=== PATIENT | male | born 1940 | race Caucasian/White ===

== ENCOUNTER → 2017-06-07 | Outpatient (CLI) | payer MEDICARE, OTHER ==
[~2017-06-07] VITALS: Ht 172.7 cm; Wt 78.0 kg
[~2017-06-07] MED LIST: ASPI-231 PO; ATOR20TA PO; LISI-646 PO; RANI-229 PO
== END | disposition home or self-care (01) ==
LOC: Rad HDHVI 13:43
PROVIDERS: ATTEND Internal Medicine Cardiovascular Disease
DX: I10 Essential (primary) hypertension (principal); E78.00 Pure hypercholesterolemia, unspecified; E11.9 Type 2 diabetes mellitus without complications; Z95.0 Presence of cardiac pacemaker
CPT/HCPCS: 78452; 93017; 96374; A9500

== ENCOUNTER → 2018-06-08 | Outpatient (CLI) | payer MEDICARE, BC ==
[2018-06-08 12:05] LABS: Basophils # (auto) 0.1 uL; Basophils % (auto) 0.7 % (0.0-2.0); Eosinophils # (auto) 0.2 uL; Eosinophils % (auto) 2.5 % (0.0-7.0); Hematocrit 49.1 % (41.0-53.0); Hemoglobin 16.3 g/dL (13.5-17.5); Lymphocytes # (auto) 2.1 uL; Lymphocytes % (auto) 27.6 % (10.0-50.0); Mean Corpuscular Hemoglobin 30.9 pg (28.0-32.0); Mean Corpuscular Hgb Conc. 33.1 g/dL (32.0-36.0); Mean Corpuscular Volume 93.4 fL (80.0-100.0); Monocytes # (auto) 0.8 uL; Monocytes % (auto) 9.9 % (0.0-12.0); Neutrophils # (auto) 4.6 uL; Neutrophils % (auto) 59.3 % (37.0-80.0); Nucleated Red Blood Cells % 0.6 %; Platelet Count (auto) 185 10^3/uL (140-450); Red Blood Cells 5.26 10^6/uL (4.5-5.90); Red Cell Distribution Width 13.9 % (11.8-14.3); White Blood Cell 7.7 10^3/uL (4.4-10.8)
[2018-06-08 12:15] LABS: Urine Blood Negative /uL (Negative); Urine Specific Gravity 1.012 (1.001-1.035)
[2018-06-08 12:53] LABS: Free T4 (Free Thyroxine) 1.06 ng/dL (0.89-1.76)
[2018-06-08 12:56] LABS: Prostate Specific Antigen 4.59 ng/mL (0.0-4.0)
[2018-06-08 13:36] LABS: Albumin 3.8 g/dL (3.4-5.0); BUN/Creatinine Ratio 16.5; Bilirubin, Total 3.5 mg/dL (0.2-1.0); Calcium 9.1 mg/dL (8.5-10.1); Potassium 3.8 mmol/L (3.5-5.1); Total Protein 7.2 g/dL (6.4-8.2)
== END | disposition home or self-care (01) ==
LOC: LAB 07:58
PROVIDERS: ATTEND Internal Medicine Cardiovascular Disease
DX: Z00.01 Encounter for general adult medical examination with abnormal findings (principal); E03.9 Hypothyroidism, unspecified; E55.9 Vitamin D deficiency, unspecified; E11.9 Type 2 diabetes mellitus without complications; E29.1 Testicular hypofunction; C61 Malignant neoplasm of prostate; D51.9 Vitamin B12 deficiency anemia, unspecified; N39.0 Urinary tract infection, site not specified; I10 Essential (primary) hypertension; E78.00 Pure hypercholesterolemia, unspecified
CPT/HCPCS: 36415; 80053; 80061; 81003; 82306; 82607; 83036; 84153; 84154; 84403; 84439; 84443; 85025

== ENCOUNTER → 2018-07-06 | Outpatient (CLI) | payer MEDICARE, BC ==
[~2018-07-06] VITALS: Ht 172.7 cm; Wt 77.1 kg
== END | disposition home or self-care (01) ==
LOC: Rad HDHVI 08:30
PROVIDERS: ATTEND Internal Medicine Cardiovascular Disease
DX: I11.0 Hypertensive heart disease with heart failure (principal); E03.9 Hypothyroidism, unspecified; E11.9 Type 2 diabetes mellitus without complications; I35.0 Nonrheumatic aortic (valve) stenosis
CPT/HCPCS: 78452; 93017; 93306; 96374; A9500

== ENCOUNTER → 2018-11-14 | Outpatient (CLI) | payer MEDICARE, BC | END | disposition home or self-care (01) | LOC: Rad HDHVI 10:56 | PROVIDERS: ATTEND Internal Medicine Cardiovascular Disease | DX: I35.1 Nonrheumatic aortic (valve) insufficiency (principal); I49.9 Cardiac arrhythmia, unspecified; R00.2 Palpitations; I50.23 Acute on chronic systolic (congestive) heart failure | CPT/HCPCS: 93306 ==

== ENCOUNTER → 2018-12-29 | Outpatient (CLI) | payer MEDICARE, BC ==
[2018-12-29 12:22] LABS: Basophils # (auto) 0.1 uL; Basophils % (auto) 0.7 % (0.0-2.0); Eosinophils # (auto) 0.1 uL; Eosinophils % (auto) 1.8 % (0.0-7.0); Hematocrit 48.7 % (41.0-53.0); Hemoglobin 16.4 g/dL (13.5-17.5); Lymphocytes % (auto) 26.6 % (10.0-50.0); Mean Corpuscular Hemoglobin 31.3 pg (28.0-32.0); Mean Corpuscular Hgb Conc. 33.6 g/dL (32.0-36.0); Monocytes # (auto) 0.8 uL; Monocytes % (auto) 10.2 % (0.0-12.0); Neutrophils # (auto) 4.5 uL; Neutrophils % (auto) 60.7 % (37.0-80.0); Nucleated Red Blood Cells % 0.2 %; Platelet Count (auto) 178 10^3/uL (140-450); Red Blood Cells 5.23 10^6/uL (4.5-5.90); Red Cell Distribution Width 13.6 % (11.8-14.3); White Blood Cell 7.4 10^3/uL (4.4-10.8)
[2018-12-29 12:29] LABS: BUN/Creatinine Ratio 18.3; Calcium 9.2 mg/dL (8.5-10.1)
== END | disposition home or self-care (01) ==
LOC: Rad HDHVI 09:58
PROVIDERS: ATTEND Internal Medicine Cardiovascular Disease
DX: I35.1 Nonrheumatic aortic (valve) insufficiency (principal); D64.9 Anemia, unspecified; I10 Essential (primary) hypertension; I49.5 Sick sinus syndrome; R06.01 Orthopnea
CPT/HCPCS: 36415; 80048; 85025; 93306

== ENCOUNTER → 2019-07-24 | Outpatient (CLI) | payer MEDICARE, BC ==
[2019-07-24 12:28] LABS: Basophils # (auto) 0.1 uL; Basophils % (auto) 0.7 % (0.0-2.0); Eosinophils # (auto) 0.2 uL; Eosinophils % (auto) 2.3 % (0.0-7.0); Hematocrit 48.3 % (41.0-53.0); Hemoglobin 16.4 g/dL (13.5-17.5); Lymphocytes % (auto) 28.6 % (10.0-50.0); Mean Corpuscular Hemoglobin 31.6 pg (28.0-32.0); Mean Corpuscular Hgb Conc. 33.9 g/dL (32.0-36.0); Mean Corpuscular Volume 93.3 fL (80.0-100.0); Monocytes # (auto) 0.7 uL; Monocytes % (auto) 9.9 % (0.0-12.0); Neutrophils # (auto) 4.2 uL; Neutrophils % (auto) 58.5 % (37.0-80.0); Nucleated Red Blood Cells % 0.1 %; Platelet Count (auto) 174 10^3/uL (140-450); Red Blood Cells 5.18 10^6/uL (4.5-5.90); White Blood Cell 7.2 10^3/uL (4.4-10.8)
[2019-07-24 12:31] LABS: Potassium 3.5 mmol/L (3.5-5.1); Urine Blood Negative /uL (Negative); Urine Specific Gravity 1.014 (1.001-1.035)
[2019-07-24 12:38] LABS: Free T4 (Free Thyroxine) 1.36 ng/dL (0.89-1.76)
[2019-07-24 12:39] LABS: Albumin 3.6 g/dL (3.4-5.0); BUN/Creatinine Ratio 12.4; Bilirubin, Total 2.2 mg/dL (0.2-1.0); Calcium 9.4 mg/dL (8.5-10.1); Total Protein 6.9 g/dL (6.4-8.2)
[2019-07-24 12:55] LABS: Prostate Specific Antigen 6.08 ng/mL (0.0-4.0)
== END | disposition home or self-care (01) ==
LOC: LAB 08:04
PROVIDERS: ATTEND Internal Medicine Cardiovascular Disease
DX: E03.9 Hypothyroidism, unspecified (principal); K90.9 Intestinal malabsorption, unspecified; C61 Malignant neoplasm of prostate; E29.1 Testicular hypofunction; N39.0 Urinary tract infection, site not specified; D51.9 Vitamin B12 deficiency anemia, unspecified; E11.9 Type 2 diabetes mellitus without complications; I11.0 Hypertensive heart disease with heart failure; I50.9 Heart failure, unspecified; Z79.899 Other long term (current) drug therapy
CPT/HCPCS: 36415; 80053; 80061; 81003; 82306; 82607; 83036; 84153; 84154; 84403; 84439; 84443; 85025

== ENCOUNTER → 2020-07-29 | Outpatient (CLI) | payer MEDICARE, BC ==
[~2020-07-29] MED LIST changes: -RANI-229 PO; +RANI300T PO
== END | disposition home or self-care (01) ==
LOC: Rad HDHVI 14:05
PROVIDERS: ATTEND Internal Medicine Cardiovascular Disease
DX: R00.2 Palpitations (principal); R06.02 Shortness of breath; Z95.0 Presence of cardiac pacemaker
CPT/HCPCS: 93306

== ENCOUNTER → 2020-11-03 | Outpatient (CLI) | payer MEDICARE, BC | END | disposition home or self-care (01) | LOC: Rad HDHVI 09:34 | PROVIDERS: ATTEND Internal Medicine Cardiovascular Disease | DX: M79.632 Pain in left forearm (principal) | CPT/HCPCS: 73090 ==

== ENCOUNTER → 2021-05-08 | Outpatient (CLI) | payer MEDICARE, BC ==
[~2021-05-08] MED LIST changes: -LISI-646 PO; +LISI20TA28 PO
== END | disposition home or self-care (01) ==
LOC: Rad HDHVI 12:56
PROVIDERS: ATTEND Internal Medicine Cardiovascular Disease
DX: R00.2 Palpitations (principal); R06.02 Shortness of breath
CPT/HCPCS: 93306

== ENCOUNTER → 2021-05-14 | Outpatient (CLI) | payer MEDICARE, BC ==
[2021-05-14 12:01] LABS: Basophils # (auto) 0.1 10 ^3/uL (0-0.2); Basophils % (auto) 0.6 % (0.0-2.0); Eosinophils # (auto) 0.2 10 ^3/uL (0-0.8); Eosinophils % (auto) 2.4 % (0.0-7.0); Hemoglobin 16.3 g/dL (13.5-17.5); Lymphocytes # (auto) 2.1 10 ^3/uL (0.4-5.4); Lymphocytes % (auto) 23.4 % (10.0-50.0); Mean Corpuscular Hemoglobin 32.3 pg (28.0-32.0); Mean Corpuscular Hgb Conc. 34.6 g/dL (32.0-36.0); Mean Corpuscular Volume 93.3 fL (80.0-100.0); Monocytes # (auto) 0.8 10 ^3/uL (0-1.3); Monocytes % (auto) 9.1 % (0.0-12.0); Neutrophils # (auto) 5.7 10 ^3/uL (1.6-8.6); Neutrophils % (auto) 64.5 % (37.0-80.0); Nucleated Red Blood Cells % 0.5 %; Platelet Count (auto) 200 10^3/uL (140-450); Red Blood Cells 5.04 10^6/uL (4.5-5.90); Red Cell Distribution Width 13.5 % (11.8-14.3); White Blood Cell 8.8 10^3/uL (4.4-10.8)
[2021-05-14 12:04] LABS: Urine Blood Negative /uL (Negative); Urine Specific Gravity 1.015 (1.001-1.035)
[2021-05-14 12:05] LABS: Potassium 3.8 mmol/L (3.5-5.1)
[2021-05-14 12:16] LABS: Free T4 (Free Thyroxine) 1.41 ng/dL (0.89-1.76)
[2021-05-14 12:17] LABS: Albumin 3.8 g/dL (3.4-5.0); BUN/Creatinine Ratio 13.5; Bilirubin, Total 3.2 mg/dL (0.2-1.0); Calcium 9.5 mg/dL (8.5-10.1); Total Protein 7.2 g/dL (6.4-8.2)
[2021-05-14 12:19] LABS: Prostate Specific Antigen 5.56 ng/mL (0.0-4.0)
== END | disposition home or self-care (01) ==
LOC: CHF HDHVI 08:22
PROVIDERS: ATTEND Internal Medicine Cardiovascular Disease
DX: C61 Malignant neoplasm of prostate (principal); D51.3 Other dietary vitamin B12 deficiency anemia; I10 Essential (primary) hypertension; E11.9 Type 2 diabetes mellitus without complications; E55.9 Vitamin D deficiency, unspecified; D64.9 Anemia, unspecified; R00.2 Palpitations; R53.1 Weakness; R30.0 Dysuria
CPT/HCPCS: 36415; 80053; 80061; 81003; 82306; 82607; 83036; 84153; 84154; 84403; 84439; 84443; 85025; 85049

== ENCOUNTER → 2021-05-26 | Outpatient (CLI) | payer MEDICARE, BC ==
[~2021-05-26] VITALS: Ht 172.7 cm; Wt 79.4 kg
== END | disposition home or self-care (01) ==
LOC: Rad HDHVI 09:17
PROVIDERS: ATTEND Internal Medicine Cardiovascular Disease
DX: I25.10 Atherosclerotic heart disease of native coronary artery without angina pectoris (principal); I10 Essential (primary) hypertension; E11.9 Type 2 diabetes mellitus without complications; E78.5 Hyperlipidemia, unspecified; Z95.0 Presence of cardiac pacemaker
CPT/HCPCS: 78452; 93017; 96374; A9500

== ENCOUNTER → 2021-08-10 | Outpatient (CLI) | payer MEDICARE, BC | END | disposition home or self-care (01) | LOC: LAB 10:55 | PROVIDERS: ATTEND Internal Medicine Cardiovascular Disease | DX: R94.4 Abnormal results of kidney function studies (principal) | CPT/HCPCS: 36415; 82565; 84520 ==

== ENCOUNTER → 2021-08-11 | Outpatient (CLI) | payer MEDICARE, BC ==
[~2021-08-11] MED LIST changes: -ASPI-231 PO; +ASPI1TAB20 PO; +IOHEXOL 350 MG/ML 100ML IJ ONE
[2021-08-11 09:23] VITALS: BP 134/88
[2021-08-11 09:57] VITALS: BP 138/67
== END | disposition home or self-care (01) ==
LOC: Rad HDHVI 09:16
PROVIDERS: ATTEND Internal Medicine Cardiovascular Disease
DX: I65.23 Occlusion and stenosis of bilateral carotid arteries (principal); I70.0 Atherosclerosis of aorta; I65.01 Occlusion and stenosis of right vertebral artery
CPT/HCPCS: 70496; G0463; Q9967

== ENCOUNTER → 2021-11-23 | Outpatient (CLI) | payer MEDICARE, BC ==
[~2021-11-23] MED LIST changes: -IOHEXOL 350 MG/ML 100ML IJ ONE
[2021-11-23 11:31] LABS: Basophils # (auto) 0.1 10 ^3/uL (0-0.2); Basophils % (auto) 0.9 % (0.0-2.0); Eosinophils # (auto) 0.4 10 ^3/uL (0-0.8); Eosinophils % (auto) 4.3 % (0.0-7.0); Hematocrit 47.8 % (41.0-53.0); Hemoglobin 16.2 g/dL (13.5-17.5); Lymphocytes # (auto) 2.2 10 ^3/uL (0.4-5.4); Lymphocytes % (auto) 25.7 % (10.0-50.0); Mean Corpuscular Hgb Conc. 33.9 g/dL (32.0-36.0); Mean Corpuscular Volume 91.3 fL (80.0-100.0); Monocytes # (auto) 0.8 10 ^3/uL (0-1.3); Monocytes % (auto) 9.5 % (0.0-12.0); Neutrophils # (auto) 5.2 10 ^3/uL (1.6-8.6); Neutrophils % (auto) 59.6 % (37.0-80.0); Nucleated Red Blood Cells % 0.1 %; Red Blood Cells 5.23 10^6/uL (4.5-5.90); Red Cell Distribution Width 13.7 % (11.8-14.3); Urine Blood Negative /uL (Negative); Urine Specific Gravity 1.014 (1.001-1.035); White Blood Cell 8.7 10^3/uL (4.4-10.8)
[2021-11-23 12:09] LABS: Potassium 4.2 mmol/L (3.5-5.1)
[2021-11-23 12:10] LABS: Free T4 (Free Thyroxine) 1.21 ng/dL (0.89-1.76)
[2021-11-23 12:19] LABS: Albumin 3.5 g/dL (3.4-5.0); BUN/Creatinine Ratio 16.3; Bilirubin, Total 1.6 mg/dL (0.2-1.0); Calcium 9.4 mg/dL (8.5-10.1); Total Protein 7.2 g/dL (6.4-8.2)
[2021-11-23 12:32] LABS: Prostate Specific Antigen 6.99 ng/mL (0.0-4.0)
== END | disposition home or self-care (01) ==
LOC: LAB 10:31
PROVIDERS: ATTEND Internal Medicine Cardiovascular Disease
DX: C61 Malignant neoplasm of prostate (principal); E11.9 Type 2 diabetes mellitus without complications; D51.3 Other dietary vitamin B12 deficiency anemia; D64.9 Anemia, unspecified; E55.9 Vitamin D deficiency, unspecified; I10 Essential (primary) hypertension; R00.2 Palpitations; R53.1 Weakness; R30.0 Dysuria
CPT/HCPCS: 36415; 80053; 80061; 81003; 82306; 82607; 83036; 84153; 84154; 84403; 84439; 84443; 85025

== ENCOUNTER → 2021-11-25 | Outpatient (CLI) | payer MEDICARE, BC | END | disposition home or self-care (01) | LOC: Rad HDHVI 12:54 | PROVIDERS: ATTEND Internal Medicine Cardiovascular Disease | DX: I08.8 Other rheumatic multiple valve diseases (principal); E78.5 Hyperlipidemia, unspecified; R06.02 Shortness of breath; Z95.0 Presence of cardiac pacemaker | CPT/HCPCS: 93306 ==

== ENCOUNTER → 2022-05-03 | Outpatient (CLI) | payer MEDICARE, BC | END | disposition home or self-care (01) | LOC: Rad HDHVI 08:54 | PROVIDERS: ATTEND Internal Medicine Cardiovascular Disease | DX: I63.9 Cerebral infarction, unspecified (principal) | CPT/HCPCS: 70450 ==

== ENCOUNTER → 2022-12-06 | Outpatient (CLI) | payer MEDICARE, BC | END | disposition home or self-care (01) | LOC: Rad HDHVI 09:15 | PROVIDERS: ATTEND Internal Medicine Cardiovascular Disease | DX: I11.9 Hypertensive heart disease without heart failure (principal); R06.02 Shortness of breath; E78.5 Hyperlipidemia, unspecified | CPT/HCPCS: 93306 ==

== ENCOUNTER → 2022-12-21 | Outpatient (CLI) | payer MEDICARE, BC | END | disposition home or self-care (01) | LOC: Rad HDHVI 15:27 | PROVIDERS: ATTEND Internal Medicine Cardiovascular Disease | DX: M79.672 Pain in left foot (principal); M79.671 Pain in right foot | CPT/HCPCS: 73630 ==

== ENCOUNTER → 2023-10-13 | Outpatient (CLI) | payer MEDICARE, BC ==
[~2023-10-13] MED LIST changes: -LISI20TA28 PO; +LISI20TA56 PO
== END | disposition home or self-care (01) ==
LOC: Rad HDHVI 10:47
PROVIDERS: ATTEND Internal Medicine Cardiovascular Disease
DX: I34.0 Nonrheumatic mitral (valve) insufficiency (principal); I11.9 Hypertensive heart disease without heart failure; I71.21 Aneurysm of the ascending aorta, without rupture; E78.5 Hyperlipidemia, unspecified
CPT/HCPCS: 93306

== ENCOUNTER → 2023-10-21 | Outpatient (CLI) | payer MEDICARE, BC ==
[~2023-10-21] VITALS: Ht 172.7 cm; Wt 73.9 kg
== END | disposition home or self-care (01) ==
LOC: Rad HDHVI 09:42
PROVIDERS: ATTEND Internal Medicine Cardiovascular Disease
DX: I11.0 Hypertensive heart disease with heart failure (principal); I50.43 Acute on chronic combined systolic (congestive) and diastolic (congestive) heart failure; I35.8 Other nonrheumatic aortic valve disorders; E11.40 Type 2 diabetes mellitus with diabetic neuropathy, unspecified; E78.00 Pure hypercholesterolemia, unspecified; Z95.0 Presence of cardiac pacemaker
CPT/HCPCS: 78452; 93017; 96374; A9500

== ENCOUNTER → 2024-08-07 | Outpatient (CLI) | payer MEDICARE, BC | END | disposition home or self-care (01) | LOC: Rad HDHVI 09:52 | PROVIDERS: ATTEND Internal Medicine Cardiovascular Disease | DX: I08.1 Rheumatic disorders of both mitral and tricuspid valves (principal); I11.9 Hypertensive heart disease without heart failure; R00.2 Palpitations; Z95.2 Presence of prosthetic heart valve | CPT/HCPCS: 93306 ==

== ENCOUNTER → 2024-10-02 | Outpatient (CLI) | payer MEDICARE, BC ==
--- NOTE | 2024-10-02 12:39 | DVH ---
EXAM: CT HEAD WITHOUT CONTRAST INDICATION: HEADACHES TECHNIQUE: CT of the head without intravenous contrast. Radiation Dose Information: CT Dose: CTDI volume is 50.94 mGy. Dose-length product is 815.1 mGy*cm The dose indicators for CT are the volume Computed Tomography (CT) Dose Index (CTDIvol) and the Dose Length Product (DLP), and are measured in units of mGy and mGy-cm, respectively. These indicators are not patient dose, but values generated from the CT scanner acquisition factors. The report includes radiation exposure data for exposures received during this examination. COMPARISON: HEAD WITHOUT CONTRAST on DOS: 05/03/22 FINDINGS: There is no evidence of acute intracranial hemorrhage, extra-axial collection, mass effect, midline s hift, herniation or hydrocephalus. The ventricles, sulci and cisterns are age appropriate. The abernathy-white differentiation is intact. Patchy periventricular and subcortical white matter hypoattenuation is nonspecific but may be related to small vessel ischemic disease. The visualized paranasal sinuses and mastoid air cells are clear. The surrounding soft tissues and osseous structures are unremarkable. IMPRESSION: 1. No CT evidence of acute intracranial abnormality. HS:Y
== END | disposition home or self-care (01) ==
LOC: Rad HDHVI 10:59
PROVIDERS: ATTEND Internal Medicine Cardiovascular Disease
DX: G93.89 Other specified disorders of brain (principal); R51.9 Headache, unspecified
CPT/HCPCS: 70450

== ENCOUNTER → 2024-10-10 | Outpatient (CLI) | payer MEDICARE, BC ==
[~2024-10-10] MED LIST changes: +ALBUTEROL SULF 2.5 MG/0.5ML(0.5%) NEB SOLN ONE
== END | disposition home or self-care (01) ==
LOC: Rad HDHVI 10:52
PROVIDERS: ATTEND Internal Medicine Cardiovascular Disease
DX: I50.43 Acute on chronic combined systolic (congestive) and diastolic (congestive) heart failure (principal)
CPT/HCPCS: 93880

== ENCOUNTER → 2024-10-12 | Outpatient (CLI) | payer MEDICARE, BC ==
[~2024-10-12] MED LIST changes: -ALBUTEROL SULF 2.5 MG/0.5ML(0.5%) NEB SOLN ONE
--- NOTE | 2024-10-16 13:37 | DVHSR ---
APPROVED REPORT EXAM: Two-dimensional and M-mode echocardiogram with Doppler and color Doppler. Surgery/Intervention Valve Replacement: Type: TAVR Pacemaker: DIMENSIONS LVDd5.1 (3.8-5.7cm)LA (2D)4.5 (1.9-4.0cm)Aortic Root (2.0-3.7cm) LVDs3.7 (2.5-4.0cm)LA (MM) (1.9-4.0cm)Aortic Cusp Exc (1.5-2.0cm) EF (%) 55.0 (55-70%)Rt. Atrium4.3 (1.9-4.0cm)Asc. Aorta cm IVSd1.1 (0.7-1.1cm)RV (D) (1.8-2.4cm) PWd0.9 (0.7-1.1cm) Mitral Valve MitralMitral Stenosis E wave0.90m/sMV Mean GR.mmHg A wave1.50m/sMV Peak GR.mmHg E/A ratio0.62D MVAcm2 Aortic Valve Aortic ValveAortic Stenosis V10.70m/Anthony Mean GR.7mmHg V21.60m/Anthony Peak GR.11mmHg Pulmonic Valve V20.50m/s LEFT VENTRICLE The left ventricle is normal size. The left ventricle is normal in structure and function. The Ejection Fraction is within normal limits. RIGHT VENTRICLE The right ventricle is normal size. ATRIA The left atrium is enlarged. The right atrium is enlarged. The interatrial septum is intact with no evidence for an atrial septal defect. MITRAL VALVE The mitral valve is normal in structure. There is no mitral valve regurgitation noted. PULMONIC VALVE The pulmonic valve is not well visualized. TRICUSPID VALVE The tricuspid valve is grossly normal. AORTIC VALVE The prosthetic aortic valve appears normal. GREAT VESSELS The aortic root is normal size. PERICARDIAL EFFUSION There is no pericardial effusion. Conclusion EF >55% LAE DARIANA NL FUNCTIONING BIOPROSTHETIC AV
== END | disposition home or self-care (01) ==
LOC: Rad HDHVI 09:50
PROVIDERS: ATTEND Internal Medicine Cardiovascular Disease
DX: I11.0 Hypertensive heart disease with heart failure (principal); I50.43 Acute on chronic combined systolic (congestive) and diastolic (congestive) heart failure; Z95.0 Presence of cardiac pacemaker
CPT/HCPCS: 93306